=== PATIENT | female | born 2000 | race Caucasian/White ===

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

== ENCOUNTER → 2022-09-10 | Outpatient (CLI) | payer OTHER, SELFPAY ==
[2022-09-10 12:33] LABS: Absolute Lymphocyte Count 1.48 X10^3/uL (0.83-4.51); Absolute Neutrophil Count 2.5 X10^3/uL (2.0-7.7); Basophil# 0.02 X10^3/uL; Basophil% 0.5 % (0-1); Eosinophil# 0.03 X10^3/uL; Eosinophils% 0.7 % (0-5); Hematocrit 40.1 % (37-47); Hemoglobin 14.1 g/dL (12.0-15.0); Lymphocyte # 1.48 X10^3/ul (0.83-4.51); Lymphocyte % 34.4 % (19-41); Mean Corp Hgb Conc 35.2 g/dL (32-36); Mean Corpuscular Hgb 31.8 pg (27.0-32.0); Mean Corpuscular Volume 90.5 fL (81-99); Monocyte# 0.27 X10^3/uL; Monocyte% 6.3 % (0-10); NRBC Flagged by Analyzer 0 % (0-5); Neutrophil # 2.49 X10^3/uL (2.7-7.7); Neutrophil % 57.9 % (47-70); Platelet Count 255 K/mm3 (150-450); RBC Distribution Width CV 11.5 % (11.6-14.6); RBC Distribution Width SD 38.3 fl (35.1-43.9); Red Blood Count 4.43 M/mm3 (4.2-5.4); White Blood Count 4.3 K/mm3 (4.4-11.0)
== END | disposition home or self-care (01) ==
LOC: MFPLAB 11:29
PROVIDERS: PCP Family Medicine; Visit Provider Nurse Practitioner Family
DX: R23.3 Spontaneous ecchymoses (principal)
CPT/HCPCS: 36415; 85025

== ENCOUNTER → 2024-07-25 | Outpatient (CLI) | payer OTHER, SELFPAY ==
--- NOTE | 2024-07-25 10:35 | CT_ITS ---
PROCEDURE: CTA HEAD W/WO CONTRAST 07/25/2024 REASON FOR EXAM: HEADACHE TECHNIQUE: CTA imaging of the [place] from the skull base to the vertex with intravenous contrast. Coronal and Sagittal reconstruction series were provided. 3D, 3D post processing, 3D reconstructions, Maximum intensity projection (MIPs) Volume rendering and Shaded surface rendering was provided. One or more dose reduction techniques were used (e.g., Automated exposure control, adjustment of the mA and/or kV according to patient size, use of iterative reconstruction technique). COMPARISON: None FINDINGS: No evidence of acute intracranial hemorrhage, midline shift or mass effect. No definite CT evidence of acute territorial cortical infarction. No hydrocephalus. Cerebral volume is age-appropriate. Calvarium is intact. Paranasal sinuses and mastoid air cells are clear. Severely diminutive distal right vertebral artery, likely congenital. No large vessel high-grade stenosis, occlusion or aneurysm involving the [id number]. No pathologic enhancement. Dural venous sinuses are patent. CT/CTA Head W/WO Contrast IMPRESSION: No acute intracranial abnormality, large vessel occlusion or sizable aneurysm. Reading Location: [facility]
== END | disposition home or self-care (01) ==
PROVIDERS: PCP Family Medicine; Referring Provider Ophthalmology; Visit Provider Ophthalmology
DX: R51.9 Headache, unspecified (principal)
CPT/HCPCS: 70496; Q9967

== ENCOUNTER 2024-10-05 17:15 | Emergency (ER) | payer OTHER, SELFPAY ==
[2024-10-05 17:16] VITALS: BP 133/73; PULSE 108; RESP 16; TEMP 36.8; O2SAT 97; BMI 23.4
--- NOTE | 2024-10-05 17:26 | EKG12_ITS ---
Test Reason : DYSRHYTHMIA Blood Pressure : */* mmHG Vent. Rate : 95 BPM Atrial Rate : 95 BPM P-R Int : 152 ms QRS Dur : 76 ms QT Int : 350 ms P-R-T Axes : 70 102 25 degrees QTcB Int : 439 ms Normal sinus rhythm Rightward axis Borderline ECG Confirmed by AIDAN BUSTILLOS, CRISTA ([id number]), assistant editor CAROLINA MENDEZ ([id number]) on 10/07/2024 1:01:05 PM Referred By: Confirmed By: CRISTA BERMUDEZ MD
--- NOTE | 2024-10-05 17:26 | RAD_ITS ---
PROCEDURE: CHEST PA AND LATERAL 10/05/2024 REASON FOR EXAM: CHEST PAIN TECHNIQUE: CHEST PA AND LATERAL COMPARISON: None FINDINGS: No focal consolidation. No pleural effusion or pneumothorax. Cardiac silhouette is within normal limits. No acute fractures. RAD/Chest PA and Lateral IMPRESSION: No focal consolidations. Reading Location: [id number]
[2024-10-05 17:56] LABS: Absolute Lymphocyte Count 0.55 X10^3/uL (0.83-4.51); Absolute Neutrophil Count 11.8 X10^3/uL (2.0-7.7); Basophil# 0.02 X10^3/uL; Basophil% 0.2 % (0-1); Hematocrit 41.9 % (37-47); Hemoglobin 15.7 g/dL (12.0-15.0); Lymphocyte # 0.55 X10^3/ul (0.83-4.51); Lymphocyte % 4.3 % (19-41); Mean Corp Hgb Conc 37.5 g/dL (32-36); Mean Corpuscular Hgb 33.3 pg (27.0-32.0); Mean Platelet Vol. 8.7 fl (6.2-12.0); Monocyte# 0.51 X10^3/uL; NRBC Flagged by Analyzer 0 % (0-5); Neutrophil # 11.76 X10^3/uL (2.7-7.7); Neutrophil % 91.3 % (47-70); POSITIVE DIFFERENTIAL YES; Platelet Count 241 K/mm3 (150-450); RBC Distribution Width CV 11.5 % (11.6-14.6); Red Blood Count 4.71 M/mm3 (4.2-5.4); White Blood Count 12.9 K/mm3 (4.4-11.0)
[2024-10-05 18:04] LABS: Anion Gap 12 (5-15); BUN 9 mg/dL (4-19); BUN/Creat Ratio 11.7 RATIO (10-20); Calcium,Total 9.6 mg/dL (7.6-11.0); Carbon Dioxide 23.5 mmol/L (21.0-32.0); Chloride 104 mmol/L (98-108); Creatinine, Serum 0.77 mg/dL (0.70-1.20); EST Glomerular Filtration Rate 111 (>60); Estimated Creatinine Clearance 90.64 ml/min (50-250); Glucose 99 mg/dL (70-99); Potassium 3.8 mmol/L (3.3-5.1); Sodium Level 139 mmol/L (133-145); Troponin T High Sensitivity < 6 ng/L (<=14)
--- NOTE | 2024-10-05 18:26 | EX.ED.DYSGE1 ---
HPI History of Present Illness Chief Complaint: Palpitations Informant: patient and spouse/S.O. Narrative Narrative: 24-year-old female presented to the emergency room following a syncopal episode. Patient states that she woke up this morning with some mild pain in her throat. She states she went to primary care where she was given azithromycin and told she was probably having a sinus infection that was spreading to her throat. She states that they did a throat culture. Patient states that she went home and had a fever of up to 102. Patient had a syncopal episode. She notes some dysuria this afternoon and was having some low back discomfort late this morning. Patient notes that she has been having some intermittent sharp pains in her chest. She notes a mild cough. She denies any rash or diarrhea. Significant other states he feels fine. Patient feels her heart racing and beating fast. PFSH PFSH Allergy/AdvReac Type Severity Reaction Status Date / Time No Known Allergies Allergy Verified 10/05/24 17:19 Surgical History (Updated 10/05/24 @ 19:10 by Zhane Gagnon) [place] teeth extracted Social History Smoking Status: Never smoker ROS ROS ED Constitutional Constitutional ED: Reports chills and fever(s); Denies weight loss Eyes Eyes: Denies change in vision or diplopia ENT ENT ED: Reports sore throat; Denies ear pain or rhinorrhea Cardiovascular Cardiovascular: Reports chest pain, racing heartbeat and other Details: Syncope ; Denies orthopnea or palpitations Respiratory/Chest Respiratory/Chest: Denies cough, dyspnea or orthopnea Gastrointestinal Gastrointestinal: Reports nausea; Denies abdominal pain, diarrhea or vomiting Genitourinary Genitourinary ED: Reports dysuria; Denies hematuria or urinary frequency Musculoskeletal Musculoskeletal: Reports back pain; Denies arthralgias or myalgias Integumentary Denies abscess or rash Neurologic Neurologic: Denies headache(s) or weakness Psychiatric Psychiatric: Denies anxiety, depression, suicidal ideation or suicidal thoughts Endocrine Endocrinology: Denies polydipsia, polyphagia or polyuria Allergic/Immunologic Allergic/Immunologic ED: Denies mouth swelling, tongue swelling or urticaria EXAM Physical Exam Const Vital Signs: 10/05/24 17:16 10/05/24 19:09 10/05/24 19:10 Temperature 98.2 F Temperature Source Oral Pulse Rate 108 H Respiratory Rate 16 Respiratory Effort Normal Blood Pressure 133/73 H Blood Pressure Mean 93 Pulse Ox 97 Oxygen Delivery Method Room Air Room Air 10/05/24 19:11 10/05/24 19:15 10/05/24 21:00 Temperature Temperature Source Pulse Rate 97 100 Respiratory Rate 16 16 Respiratory Effort Normal Blood Pressure 113/66 113/67 Blood Pressure Mean 81 82 Pulse Ox 100 100 Oxygen Delivery Method Room Air Room Air 10/05/24 21:26 Temperature 98.4 F Temperature Source Pulse Rate 100 Respiratory Rate 16 Respiratory Effort Blood Pressure 113/67 Blood Pressure Mean 82 Pulse Ox 100 Oxygen Delivery Method Positive well nourished and well developed General Appearance ED: well developed and NAD HEENT Reports normocephalic, head/scalp atraumatic and moist mucous membranes Eyes PERRL and EOMs intact bilaterally Neck no lymphadenopathy, supple and no JVD Resp normal respiratory effort and clear to auscultation bilaterally Cardio regular rate, regular rhythm and no murmurs Rate: tachycardic GI normal to inspection, nondistended, normoactive bowel sounds and non-tender Palpation: soft Back/Spine normal ROM General Back: CVA tenderness bilateral Extremity normal to inspection General Extremety ED: Negative for edema General Extremity: Negative for edema Neuro oriented x3 and CN's II-XII intact bilaterally Sensorium / Orientation: alert Motor Exam: strength 5/5 throughout Psych mental status grossly normal Mood & Affect: Negative for depressed or tearful Skin no rashes or lesions noted and no wounds MDM MDM MDM Narrative Medical decision making narrative: Differential diagnosis is broad to include but not limited to viral syndrome cardiac syncope vasovagal syncope sepsis UTI pyelonephritis pericarditis myocarditis Urine specimen shows no obvious infection. test is negative. 2 sets of cardiac enzymes are negative. LFTs within normal limits. BMP normal white count slightly elevated nonspecifically at 12.9 with 91.3 neutrophils hemoglobin 15.7 platelet count 241. My independent interpretation of the chest x-ray is no acute process. EKG is normal sinus rhythm at a rate of 95 bpm. No QT prolongation. Patient's had no events on the monitor. She received Toradol for her back pain. COVID influenza and RSV swabs were negative. At this point I think the patient can be discharged home. Would recommend fever control. Oral hydration. Patient to return if new or worsening symptoms. We will await the throat culture from primary care. History & Record Review Discussion w/independent historian: Patient and Significant other Additional record(s) reviewed:: Prior labs Lab Data Attestation: I reviewed the patient's lab results. Labs: Laboratory Results - last 24 hr 10/05/24 10/05/24 10/05/24 17:27 19:26 19:53 WBC 12.9 H RBC 4.71 Hgb 15.7 H Hct 41.9 MCV 89.0 MCH 33.3 H MCHC 37.5 H RDW Std Deviation 37.0 RDW Coeff of Maria [place] 11.5 L Plt Count 241 MPV 8.7 Immature Gran % (Auto) 0.200 Neut % (Auto) 91.3 H Lymph % (Auto) 4.3 L [place] % (Auto) 4.0 Eos % (Auto) 0.0 Baso % (Auto) 0.2 Absolute Neuts (auto) 11.8 H Absolute Lymphs (auto) 0.55 L Nucleated RBC % 0 Sodium 139 Potassium 3.8 Chloride 104 Carbon Dioxide 23.5 Anion Gap 12 BUN 9 Creatinine 0.77 Estim Creat Clear Calc 90.64 Est GFR (MDRD) Non-Af 111 BUN/Creatinine Ratio 11.7 Glucose 99 Calcium 9.6 Total Bilirubin 0.86 Direct Bilirubin 0.32 H AST 18 ALT 15 Alkaline Phosphatase 69 Troponin T High Sens < 6 Troponin T Hi Sens 2 Hr < 6 Total Protein 6.3 Albumin 4.0 Globulin 2.2 Lipase 22 Serum , Qual NEGATIVE Urine Color Yellow Urine Clarity Clear Urine pH 7.0 Ur Specific [place] 1.010 Urine Protein Negative Urine Glucose (UA) Normal Urine Ketones 50 H Urine Occult Blood Negative Urine Nitrite Negative Urine Bilirubin Negative Urine Urobilinogen Normal Ur Leukocyte Esterase Negative Urine RBC 0-5 SEEN Urine WBC 0-5 SEEN Ur Squamous Epith Cells 0-5 SEEN Urine Bacteria 0 SEEN Urine Mucus 0 SEEN Radiography Diagnostic Testing: Clinical Impression(s) from Imaging Studies Chest X-Ray 10/05/24 17:26 IMPRESSION: No focal consolidations. Reading Location: [facility] [address] EKG Initial EKG: Attestation: I personally reviewed and interpreted this EKG as follows: Comments: Normal sinus rhythm ventricular rate of 95 bpm. QTc calculated at 439. Discharge Plan Triage Chief Complaint: Palpitations ED Provider: Lopez Gomez Dx/Rx/DC Orders Clinical Impression: Fever, Syncope and collapse Instructions: Causes of Syncope, ED Viral Syndrome (Adult) Stand Alone Forms: ED Work / School Excuse Primary Care Provider: Anamaria Flynn Referrals: Anamaria Flynn MD [Primary Care Provider] - 3-5 Days if not improving Activity Restrictions/Additional Instructions: Aggressive fever control using Tylenol and anti-inflammatories. Have encouraged her to orally hydrate. Please return if new symptoms worsening or concerns Print Language: Thai Disposition Disposition: Home, Self Care Discharge Date/Time: 10/05/24 21:31
[2024-10-05] MEDS: 0.9% Normal Saline (1000mL) 1,000 ML 999 ML IV (19:08)
[2024-10-05 19:15] VITALS: BP 113/66; PULSE 97; RESP 16; O2SAT 100
[2024-10-05 19:36] LABS: Bacteria 0 SEEN /hpf (None Seen); Mucous, Urine 0 SEEN /hpf (<or=2+)
[2024-10-05 19:43] LABS: Color, Urine Yellow (Yellow); Glucose, Dipstick Normal (Normal); Ketone-Dipstick 50 mg/dl (Negative); Leukocyte Esterase-Dipstick Negative /ul (Negative); Nitrite-Dipstick Negative (Negative); Occult Blood-Urine Negative /ul (Negative); Protein-Dipstick Negative (Negative); Urine Bilirubin Dipstick Negative (Negative); Urine Clarity Clear (Clear); Urine Urobilinogen Normal (Normal)
[2024-10-05 20:09] LABS: Troponin T High Sens 2 HR < 6 ng/L (<=14)
[2024-10-05 20:16] LABS: Red Blood Cells-Urine 0-5 SEEN /hpf (0-5); Squamous Epithelial Cells - UA 0-5 SEEN /hpf (5-10); White Blood Cells 0-5 SEEN /hpf (0-5)
[2024-10-05 20:25] LABS: AST(SGOT) 18 U/L (<=31); Alanine Aminotransfer ALT/SGPT 15 U/L (<=34); Alkaline Phosphatase 69 U/L (35-104); Bilirubin, Direct 0.32 mg/dL (0.00-0.30); Globulin 2.2 g/dL (2.2-4.2); Lipase 22 U/L (13-75); Protein, Total 6.3 g/dL (5.9-8.4); Total Bilirubin 0.86 mg/dL (0.00-1.30)
[2024-10-05 20:32] LABS: Internal QC Validated? YES +Cl - CLEAR BKGD; Pregnancy, Serum, hCG Quali. NEGATIVE Negative; Record Kit Lot#, Serum Preg. 947241
[2024-10-05 21:00] VITALS: BP 113/67; PULSE 100; RESP 16; O2SAT 100
[2024-10-05] MEDS: Ketorolac 30 MG/ML Syringe IV (21:19)
[2024-10-05 21:26] VITALS: BP 113/67; PULSE 100; RESP 16; TEMP 36.9; O2SAT 100
== END 2024-10-05 21:31 | disposition home or self-care (01) ==
PROVIDERS: Emergency Provider Emergency Medicine; PCP Family Medicine; Visit Provider Emergency Medicine
DX: R50.9 Fever, unspecified (principal); R55 Syncope and collapse; R00.2 Palpitations; M54.50 Low back pain, unspecified; R30.0 Dysuria; R07.9 Chest pain, unspecified; R05.9 Cough, unspecified; Z11.52 Encounter for screening for COVID-19
CPT/HCPCS: 71046; 80048; 80076; 81001; 83690; 84484; 84703; 85025; 87631; 93005; 96361; 96374; 99284; A4216